=== PATIENT | female | born 1965 | race Caucasian/White ===

== ENCOUNTER → 2025-06-01 12:50 | Outpatient (CLI) | payer OTHER, SELFPAY ==
--- NOTE | 2025-06-01 12:52 | DI.MG.S_ITS ---
MM screening mammo BI: 06/01/2025. BI-RADS: 1 CLINICAL: 59-year old female for bilateral screening mammogram. Tyrer-Cuzick lifetime risk of 20.8%. Current reported family history of breast cancer: mother. PRIOR EXAMS Outside films dated 02/11/2023 and 12/03/2020. MAMMOGRAPHY TECHNIQUE: 2D and 3D (tomosynthesis) digital mammographic views obtained, with additional images as needed for full coverage. Current study was also evaluated with a Computer Aided Detection (CAD) system. DENSITY B. There are scattered areas of fibroglandular density. MAMMOGRAPHY FINDINGS Bilateral: No suspicious mass, asymmetry, microcalcification, or other abnormality seen. IMPRESSION: * No evidence of malignancy. RECOMMENDATIONS Bilateral * According to the Tyrer-Cuzick Risk Assessment Model, based on the information provided your patient has a greater than 20% lifetime risk for developing breast cancer. Consider supplemental screening with breast MRI and participation in a high risk screening program. * Annual screening mammography. OVERALL ASSESSMENT CATEGORY BI-RADS-1: Negative. [employer] recommends annual screening mammography beginning at age 40 for women with average risk of breast cancer. ELECTRONICALLY SIGNED: Alysha Galarza M.D. on 06/01/2025 at 05:14:59 PM PT Interpreting Station ID: [id number]
== END ==
LOC: MAMMO 12:51
PROVIDERS: PCP Family Medicine; Referring Provider Family Medicine; Visit Provider Family Medicine
DX: Z12.31 Encounter for screening mammogram for malignant neoplasm of breast (principal); Z80.3 Family history of malignant neoplasm of breast
CPT/HCPCS: 77063; 77067

== ENCOUNTER 2025-06-09 09:24 | Day surgery (SDC) | payer OTHER, SELFPAY ==
[2025-06-09] MEDS: LACTATED RINGERS 1,000 ML 42 ML IV (09:38)
[2025-06-09 09:43] VITALS: BP 105/66; PULSE 75; RESP 20; TEMP 36.2; O2SAT 98
--- NOTE | 2025-06-09 09:57 | PM.HP.IH.1 ---
History of Present Illness History of Present Illness Date Patient Seen: 06/09/25 Time Patient Seen: 09:57 Chief complaint: Screening Colonoscopy Narrative: Berna is a 59-year-old woman who is here for a colonoscopy. Her last colonoscopy was about 6 years ago and was normal. Her half-sister had colon cancer. [facility] [place] Medical History (Updated 06/09/25 @ 09:58 by Richard Taylor MD) Allergies Surgical History (Updated 03/29/25 @ 18:25 by Kayli Palma) Anesthesia History of appendectomy (~1998) History of hysterectomy (~10/2023) Family History (Updated 03/29/25 @ 18:28 by Kayli Palma) Father No problems noted. Mother Diabetes mellitus History of heart disease Mental health problem Stroke Breast cancer Grandfather Cancer Grandmother Alzheimer's disease Social History Smoking Status: Never smoker Meds Home Medications and Allergies Home Medications ?Medication ?Instructions ?Recorded ?Confirmed ?Type estradiol 10 mcg vaginal tablet mcg vaginal 03/23/25 03/23/25 History (Vagifem) progesterone micronized 100 mg 100 mg PO ONCE PM 03/23/25 06/09/25 History capsule Allergies Allergy/AdvReac Type Severity Reaction Status Date / Time oxycodone (From Percocet) Allergy Severe Hives Verified 06/09/25 09:39 latex Allergy Mild Verified 06/09/25 09:39 Exam Vital Signs (past 8 hours): - 06/09/25 09:43 Temperature 97.1 F L Pulse Rate 75 Respiratory Rate 20 Blood Pressure 105/66 Pulse Oximetry 98 Oxygen Delivery Method Room Air Oxygen Delivery Method Room Air Const General: healthy appearing Assessment & Plan Assessment and plan (1) Family history of colon cancer: Status: Acute Plan Colonoscopy Time-Based Coding :: [TOTAL MINUTES] spent with patient and on the chart (including review of chart, obtaining history, exam, reviewing outside data, placing orders, documenting exam and treatment plan, and counseling patient) on [DATE]. 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
--- NOTE | 2025-06-09 10:26 | P.OP.COLON_ITS ---
Operative Date/Time/Diagnoses Date of procedure: 06/09/25 Time of procedure: 10:26 Pre-op diagnosis: Family history of colon cancer Post-op diagnosis: same Procedure & Clinicians Study performed: Colonoscopy Same procedure(s) as scheduled: Yes Surgeon: Richard Taylor Anesthesia Type: MAC +/- Procedure Notes Procedure in detail: Surgeon: Richard Taylor MD Anesthesia: Belinda Jeff PAROLE DIRECTOR Procedure: The patient was brought to the endoscopy suite, placed in left lateral decubitus position. The patient was connected to monitoring devices. A time-out was performed. Sedation was administered. Once the patient was adequately sedated, a digital rectal exam was performed and was normal. The scope was then inserted and advanced to the cecum where the appendiceal orifice was identified and photographed. The scope was then slowly withdrawn over greater than 6 minutes. The mucosa was thoroughly inspected. No abnormalities were found. The scope was retroflexed in the rectum. The scope was straightened and removed. The patient was awakened and brought to recovery. Scope withdrawal time: 6 minutes Sedation time: 12 minutes EBL: 0 Findings: Normal colon Post-procedure Recommendations: Colonoscopy in 5 years Disposition: PACU
[2025-06-09 10:28] VITALS: BP 93/53; PULSE 70; RESP 16; TEMP 36.2; O2SAT 97
[2025-06-09 10:33] VITALS: BP 98/51; PULSE 67; RESP 16; O2SAT 97
== END 2025-06-09 10:40 | disposition home or self-care (01) ==
PROVIDERS: PCP Family Medicine; Referring Provider Surgery; Visit Provider Surgery
PROC: 0DJD8ZZ Inspection of Lower Intestinal Tract, Via Natural or Artificial Opening Endoscopic (ICD-10-PCS; CPT 45378; principal; 2025-06-09 10:30)
DX: Z12.11 Encounter for screening for malignant neoplasm of colon (principal); Z80.0 Family history of malignant neoplasm of digestive organs
CPT/HCPCS: 45378; J2704; J7120